=== PATIENT | female | born 1950 | race Two or more races ===

== ENCOUNTER 2024-06-28 19:23 | Emergency (ER) | payer OTHER ==
[~2024-06-28] VITALS: Ht 162.6 cm; Wt 61.2 kg
[~2024-06-28 19:23] MED LIST: PROGRAF1 M1 PO
[2024-06-28] MEDS ORDERED: KATERZIA1 MG/1 ML PO (19:47)
[2024-06-28] MEDS ORDERED: ENVARSUS XR0.75 MG (19:48)
== END 2024-06-28 22:54 | disposition home or self-care (01) ==
LOC: ER 19:25
DX: R07.81 Pleurodynia (principal)